=== PATIENT | female | born 1965 | race Two or more races ===

== ENCOUNTER 2023-02-19 17:07 | Emergency (ER) | payer MEDICAID, MEDICARE ==
[~2023-02-19] VITALS: Ht 157.5 cm; Wt 61.7 kg
[2023-02-19 17:57] LABS: BASOPHILS # (AUTO) 0.1 K/uL (0.0-0.2); BASOPHILS % (AUTO) 0.8 % (0.0-2.0); EOSINOPHILS # (AUTO) 0.1 K/uL (0.0-0.7); EOSINOPHILS % (AUTO) 1.6 % (0.0-6.0); HEMATOCRIT 36 % (33-45); HEMOGLOBIN 12.1 g/dL (11.5-14.8); LYMPHOCYTES # (AUTO) 2.3 K/uL (0.8-4.8); LYMPHOCYTES % (AUTO) 31.4 % (20.0-44.0); MEAN CORPUSCULAR HEMOGLOBIN 30 PG (26.0-33.0); MEAN CORPUSCULAR HGB CONC 34 g/dl (31.0-36.0); MEAN CORPUSCULAR VOLUME 90 fL (82-100); MONOCYTES # (AUTO) 0.7 K/uL (0.1-1.30); NEUTROPHILS # (AUTO) 4.1 K/uL (1.8-8.9); NEUTROPHILS % (AUTO) 57.2 % (43.0-81.0); PLATELET COUNT (AUTO) 249 K/uL (150-450); RED BLOOD CELL COUNT(AUTO) 4.04 MIL/uL (4.0-5.2); RED CELL DISTRIBUTION WIDTH 13.3 % (11.5-15.0); WHITE BLOOD COUNT (AUTO) 7.2 K/uL (4.3-11.0)
[2023-02-19 18:18] LABS: ALANINE AMINOTRANSFERASE 39 U/L (12-78); ALBUMIN 3.9 g/dL (3.4-5.0); ALKALINE PHOSPHATASE 77 U/L (46-116); ASPARTATE AMINOTRANSFERASE 22 U/L (15-37); BILIRUBIN,DIRECT 0.1 mg/dL (0.0-0.2); BILIRUBIN,TOTAL 0.2 mg/dL (0.2-1.0); CALCIUM, SERUM 9.3 mg/dL (8.5-10.1); CARBON DIOXIDE 29 mmol/L (21-32); CHLORIDE 106 mmol/L (98-107); CREATININE 1.3 mg/dL (0.6-1.3); GLUCOSE 105 mg/dL (74-106); POTASSIUM 4.2 mmol/L (3.5-5.1); SODIUM SERUM 142 mmol/L (136-145); TOTAL PROTEIN, SERUM 7.5 g/dL (6.4-8.2); UREA NITROGEN, BLOOD 21 mg/dL (7-18)
[2023-02-19] MEDS ORDERED: MECL-159 PO (19:22)
[2023-02-19 19:36] VITALS: BP 107/63; TEMP 98.3; O2SAT 100
== END 2023-02-19 19:37 | disposition home or self-care (01) ==
LOC: ER 17:19
DX: R42 Dizziness and giddiness (principal); Z88.1 Allergy status to other antibiotic agents
CPT/HCPCS: 36415; 70450-TC; 71045-TC; 80048-TC; 80076-TC; 84484-TC; 85025-TC

== ENCOUNTER 2023-03-25 08:21 | Emergency (ER) | payer BC, MEDICAID ==
[~2023-03-25] VITALS: Ht 157.5 cm; Wt 63.5 kg
[~2023-03-25 08:21] MED LIST: MECL-159 PO
[2023-03-25 09:56] VITALS: BP 126/72; TEMP 98; O2SAT 99
== END 2023-03-25 09:57 | disposition home or self-care (01) ==
LOC: ER 08:27
DX: R07.89 Other chest pain (principal); M79.642 Pain in left hand; M79.672 Pain in left foot; Z88.0 Allergy status to penicillin; Z88.6 Allergy status to analgesic agent; Z88.8 Allergy status to other drugs, medicaments and biological substances
CPT/HCPCS: 71045-TC; 73130-TC

== ENCOUNTER 2023-08-13 12:56 | Emergency (ER) | payer BC, MEDICAID ==
[~2023-08-13] VITALS: Ht 157.5 cm; Wt 63.5 kg
[2023-08-13] MEDS ORDERED: LIDOCAINE 5% (PATCH) 1 EA PATCH TP STA (14:26)
[2023-08-13] MEDS ORDERED: LIDO30AD10 TP (14:29)
[2023-08-13] MEDS ORDERED: METH4TAB3 PO (14:29)
[2023-08-13] MEDS ORDERED: ACET-2605 PO (14:29)
[2023-08-13] MEDS ORDERED: ACETAMINOPHEN 325 MG TABLET PO ONE (14:30)
[2023-08-13 14:46] VITALS: BP 110/70; TEMP 98.5; O2SAT 98
== END 2023-08-13 14:48 | disposition home or self-care (01) ==
LOC: ER 13:09
DX: M54.41 Lumbago with sciatica, right side (principal); Z79.899 Other long term (current) drug therapy; Z88.0 Allergy status to penicillin; Z88.1 Allergy status to other antibiotic agents; W18.39XA Other fall on same level, initial encounter; Y93.89 Activity, other specified; Y92.89 Other specified places as the place of occurrence of the external cause; Y99.8 Other external cause status
CPT/HCPCS: 73502

== ENCOUNTER 2023-09-23 16:44 | Emergency (ER) | payer BC, MEDICAID ==
[~2023-09-23] VITALS: Ht 157.5 cm; Wt 74.4 kg
[~2023-09-23 16:44] MED LIST changes: +ACET-2605 PO; +LIDO30AD10 TP; +METH4TAB3 PO
[2023-09-23 18:34] LABS: BASOPHILS # (AUTO) 0.1 K/uL (0.0-0.2); BASOPHILS % (AUTO) 0.8 % (0.0-2.0); EOSINOPHILS # (AUTO) 0.1 K/uL (0.0-0.7); EOSINOPHILS % (AUTO) 1.8 % (0.0-6.0); HEMATOCRIT 37 % (33-45); HEMOGLOBIN 12.4 g/dL (11.5-14.8); LYMPHOCYTES # (AUTO) 2.6 K/uL (0.8-4.8); LYMPHOCYTES % (AUTO) 43.1 % (20.0-44.0); MEAN CORPUSCULAR HEMOGLOBIN 30 PG (26.0-33.0); MEAN CORPUSCULAR HGB CONC 33 g/dl (31.0-36.0); MEAN CORPUSCULAR VOLUME 90 fL (82-100); MONOCYTES # (AUTO) 0.6 K/uL (0.1-1.30); MONOCYTES % (AUTO) 9.1 % (2.0-12.0); NEUTROPHILS # (AUTO) 2.8 K/uL (1.8-8.9); NEUTROPHILS % (AUTO) 45.2 % (43.0-81.0); PLATELET COUNT (AUTO) 292 K/uL (150-450); RED BLOOD CELL COUNT(AUTO) 4.11 MIL/uL (4.0-5.2); RED CELL DISTRIBUTION WIDTH 13.1 % (11.5-15.0); WHITE BLOOD COUNT (AUTO) 6.1 K/uL (4.3-11.0)
[2023-09-23 18:41] LABS: CARBON DIOXIDE 29 mmol/L (21-32); CHLORIDE 105 mmol/L (98-107); CREATININE 0.8 mg/dL (0.6-1.3); GLUCOSE 107 mg/dL (74-106); POTASSIUM 3.6 mmol/L (3.5-5.1); SODIUM SERUM 139 mmol/L (136-145); UREA NITROGEN, BLOOD 17 mg/dL (7-18)
[2023-09-23 18:50] LABS: D-DIMER 0.27 mg/L(FEU (0.17-0.50); INR 0.97 (0.91-1.10); PARTIAL THROMBOPLASTIN TIME 26.6 SEC (24.3-34.3); PROTHROMBIN TIME 10.3 SECS (9.2-11.1)
[2023-09-23 18:54] LABS: NT-PRO BNP 52 pg/mL (0-125)
[2023-09-23] MEDS ORDERED: DICL100G34 TP (20:19)
[2023-09-23] MEDS ORDERED: ACET-2605 PO (20:19)
[2023-09-23 21:05] VITALS: BP 141/82; TEMP 98.4; O2SAT 100
== END 2023-09-23 21:06 | disposition home or self-care (01) ==
LOC: ER 16:46
DX: M54.31 Sciatica, right side (principal); M79.604 Pain in right leg; M25.552 Pain in left hip; Z86.73 Personal history of transient ischemic attack (TIA), and cerebral infarction without residual deficits; Z87.19 Personal history of other diseases of the digestive system; Z88.0 Allergy status to penicillin; Z88.8 Allergy status to other drugs, medicaments and biological substances; Z88.6 Allergy status to analgesic agent; R06.02 Shortness of breath
CPT/HCPCS: 36415; 71045-TC; 80048-TC; 83880; 84484-TC; 85025-TC; 85378-TC; 85730-TC; 93971-TC

== ENCOUNTER 2023-11-20 09:23 | Emergency (ER) | payer BC, MEDICAID ==
[~2023-11-20] VITALS: Ht 157.5 cm; Wt 62.1 kg
[~2023-11-20 09:23] MED LIST changes: +DICL100G34 TP
[2023-11-20] MEDS ORDERED: TRAMADOL HCL 50 MG TABLET ONE (11:19)
[2023-11-20] MEDS: TRAMADOL HCL 50 MG TABLET PO ONE (11:22)
[2023-11-20] MEDS ORDERED: DICL100G34 TP (12:53)
[2023-11-20] MEDS ORDERED: ACET-2605 PO (12:53)
[2023-11-20 14:09] VITALS: BP 118/80; TEMP 98.1; O2SAT 98
== END 2023-11-20 14:13 | disposition home or self-care (01) ==
LOC: ER 09:39
DX: S13.4XXA Sprain of ligaments of cervical spine, initial encounter (principal); S09.8XXA Other specified injuries of head, initial encounter; Z88.0 Allergy status to penicillin; Z88.8 Allergy status to other drugs, medicaments and biological substances; Z88.6 Allergy status to analgesic agent; V43.52XA Car driver injured in collision with other type car in traffic accident, initial encounter; Y93.89 Activity, other specified; Y92.488 Other paved roadways as the place of occurrence of the external cause; Y99.8 Other external cause status
CPT/HCPCS: 70450-TC; 72125-TC; 73030-TC

== ENCOUNTER 2025-04-14 17:43 | Inpatient (IN) | payer BC, MEDICAID ==
[~2025-04-14] VITALS: Ht 157.5 cm; Wt 67.1 kg
[2025-04-14 19:13] LABS: CALCIUM, SERUM 9.5 mg/dL (8.5-10.1); CREATININE 0.7 mg/dL (0.6-1.3); SODIUM SERUM 140 mmol/L (136-145); UREA NITROGEN, BLOOD 20 mg/dL (7-18)
[2025-04-14 20:05] LABS: PLATELET COUNT (AUTO) 239 K/uL (150-450); RED BLOOD CELL COUNT(AUTO) 4.26 MIL/uL (4.0-5.2); RED CELL DISTRIBUTION WIDTH 13.1 % (11.5-15.0); WHITE BLOOD COUNT (AUTO) 6.3 K/uL (4.3-11.0)
[2025-04-14] MEDS: ENOXAPARIN SODIUM 40 MG/0.4 ML DISP.SYRIN SQ SCH (21:00)
[2025-04-14] MEDS ORDERED: MAG HYDROX/AL HYDROX/SIMETH 30 ML UDC ONE (21:43)
[2025-04-14] MEDS ORDERED: ACETAMINOPHEN 650 MG/20.3 ML UDC ONE (21:43)
[2025-04-14] MEDS: MAG HYDROX/AL HYDROX/SIMETH 30 ML UDC PO ONE (21:45)
[2025-04-14] MEDS: ACETAMINOPHEN 650 MG/20.3 ML UDC PO ONE (21:46)
[2025-04-14] MEDS ORDERED: ACETAMINOPHEN ES 500 MG TABLET PO SCH (22:00)
[2025-04-14] MEDS ORDERED: ACETAMINOPHEN 325 MG TABLET PO PRN (22:00)
[2025-04-14] MEDS ORDERED: MAGNESIUM HYDROXIDE 30 ML UDC PO PRN (22:00)
[2025-04-14] MEDS ORDERED: LIDOCAINE 5% (PATCH) 1 EA PATCH TP PRN (22:00)
[2025-04-14] MEDS ORDERED: ONDANSETRON HCL/PF 4 MG/2 ML VIAL IVP PRN (22:00)
[2025-04-14] MEDS ORDERED: MAG HYDROX/AL HYDROX/SIMETH 30 ML UDC PO PRN (22:00)
[2025-04-14] MEDS: DICLOFENAC TOPICAL 100 GM TUBE TP SCH (22:00)
[2025-04-14] MEDS: ATORVASTATIN 10 MG TABLET PO SCH (22:48)
[2025-04-14 22:53] LABS: ASPARTATE AMINOTRANSFERASE 24.0 U/L (15-37); TOTAL PROTEIN, SERUM 7.5 g/dL (6.4-8.2)
[2025-04-14 23:43] VITALS: BP 140/65; TEMP 97.8; O2SAT 100
[2025-04-15] VITALS: BP 145/79; TEMP 98.4; O2SAT 99
[2025-04-15 04:00] VITALS: BP 143/73; TEMP 97.4; O2SAT 99
[2025-04-15 07:52] LABS: PLATELET COUNT (AUTO) 232 K/uL (150-450); RED BLOOD CELL COUNT(AUTO) 4.16 MIL/uL (4.0-5.2); RED CELL DISTRIBUTION WIDTH 12.9 % (11.5-15.0); WHITE BLOOD COUNT (AUTO) 5.0 K/uL (4.3-11.0)
[2025-04-15 08:00] VITALS: BP 118/70; TEMP 97.6; O2SAT 96
[2025-04-15 08:16] LABS: CALCIUM, SERUM 8.6 mg/dL (8.5-10.1); CREATININE 0.8 mg/dL (0.6-1.3); PHOSPHORUS 4.2 mg/dL (2.5-4.9); SODIUM SERUM 141 mmol/L (136-145); UREA NITROGEN, BLOOD 16 mg/dL (7-18)
[2025-04-15 08:52] LABS: LDL 142 mg/dL (0-99)
[2025-04-15] MEDS ORDERED: PANT40TA49 PO (09:12)
[2025-04-15] MEDS ORDERED: BIMA2.5D5 EACHEYE (09:12)
[2025-04-15] MEDS ORDERED: DICL100G34 TP (09:12)
[2025-04-15] MEDS ORDERED: DORZ1DRO7 EACHEYE (09:12)
[2025-04-15 12:00] VITALS: BP 111/61; TEMP 97.9; O2SAT 97
== END 2025-04-15 15:31 | disposition home or self-care (01) | DRG 206 ==
LOC: ER 18:05 → TELE1 21:36
PROVIDERS: ADMIT Nurse Practitioner Acute Care; ATTEND Nurse Practitioner Acute Care
DX: M94.0 Chondrocostal junction syndrome [Tietze] (principal); E78.5 Hyperlipidemia, unspecified; I10 Essential (primary) hypertension; K21.9 Gastro-esophageal reflux disease without esophagitis; I25.10 Atherosclerotic heart disease of native coronary artery without angina pectoris; Z86.73 Personal history of transient ischemic attack (TIA), and cerebral infarction without residual deficits; R73.03 Prediabetes; M77.9 Enthesopathy, unspecified; Z88.0 Allergy status to penicillin; Z88.6 Allergy status to analgesic agent; Z79.899 Other long term (current) drug therapy
CPT/HCPCS: 36415; 71045-TC; 80048-TC; 80061-TC; 80076-TC; 83690-TC; 83735-TC; 84100-TC; 84484-TC; 85025-TC; 93307-TC; G0378